=== PATIENT | female | born 1945 | race Caucasian/White ===

== ENCOUNTER 2016-06-18 13:26 | Emergency (ER) | payer MEDICARE, BC ==
[~2016-06-18] VITALS: Ht 165.1 cm; Wt 92.3 kg
[~2016-06-18 13:26] MED LIST: ADVAI250I PO; ALBU8I INH; ASCO500 PO; ASPI1TAB7 PO; BISA10R; CALTTAB PO; DUONI NEB; FENO134C PO; HYDR-3580 PO; LEVO50TA4 PO; LORA1TAB PO; LOSA50TA PO; MELA10CA PO; METO25 PO; OXYC10 PO; SENN8.6T15 PO; VITA100020 IM; VITA500015 PO
[2016-06-18 13:37] VITALS: BP 151/82; PULSE 54; RESP 18; TEMP 97.7; O2SAT 96
[2016-06-18] MEDS ORDERED: OMEP20TA PO (14:11)
[2016-06-18] MEDS ORDERED: VENTAER INH (14:11)
[2016-06-18] MEDS ORDERED: ADVA500A INH (14:11)
[2016-06-18] MEDS ORDERED: AMBI10TA PO (14:11)
[2016-06-18] MEDS ORDERED: IPRASOL INH (14:11)
[2016-06-18] MEDS ORDERED: CYAN1000P IM (14:11)
[2016-06-18] MEDS ORDERED: LOSA50TA PO (14:11)
[2016-06-18] MEDS ORDERED: LEVO50TA4 PO (14:11)
[2016-06-18] MEDS ORDERED: FLUC100T2 PO (14:11)
[2016-06-18] MEDS ORDERED: METO25TA3 PO (14:11)
[2016-06-18] MEDS ORDERED: HYDR-3366 PO (14:11)
[2016-06-18] MEDS ORDERED: DIAZ5 PO (14:11)
[2016-06-18] MEDS ORDERED: FERR325T72 PO (14:11)
[2016-06-18] MEDS ORDERED: HYDROmorphone HCL PF 1 MG/ML VIAL IM ONE (14:30)
[2016-06-18] MEDS ORDERED: ONDANSETRON ODT 4 MG TAB PO ONE (14:30)
--- NOTE | 2016-06-18 14:58 | PD ---
HPI Chief Complaint: Musculoskeletal Complaint Time Seen by Provider: 14:13 Travel History International Travel<30 days: No Contact w/Intl Traveler<30days: No Traveled to known affect area: No History of Present Illness HPI 70-year-old female complains of right hip pain. Patient states that she started having right hip pain about 2 weeks ago. Patient was seen by personal physician and pain management and had a shot to the right hip about 2 weeks ago without much success of controlling the pain. Patient was given prescription for hydrocodone for pain. Patient states that she has persistent pain despite taking the hydrocodone. Patient denies any injury to right hip. Patient states that pain localized to the posterior, lateral and anterior aspect of the right hip including right groin. Patient denies any fever chills. Patient denies any weakness or numbness of right lower extremity. Patient has history of hypertension, dyslipidemia, thyroid disease, arthritis, status post left hip placement. On a scale of 1-10 the pain is a 10. PFSH Past Medical History Hx Anticoagulant Therapy: Yes (81MG ASA) Arthritis: Yes Asthma: Yes Autoimmune Disease: No Anxiety: Yes Depression: Yes Heart Rhythm Problems: No Cancer: No Cardiac Catheterization: Yes (10/2013) Cardiovascular Problems: Yes (PERICARDITIS) High Cholesterol: Yes Chest Pain: Yes Congestive Heart Failure: No COPD: No Cerebrovascular Accident: No Diabetes: No Diminished Hearing: No Endocrine: No GERD: No Genitourinary: Yes (Self caths 3-4xday Neurugenic bladder) Headaches: Yes Hepatitis: No Hiatal Hernia: Yes (esophageal and morgani hernia) Hypertension: Yes Immune Disorder: No Implanted Vascular Access Dvce: Yes Kidney Stones: No Musculoskeletal: Yes (arthritis) Neurologic: No Psychiatric: Yes Reproductive: No Respiratory: Yes (ASTHMA) Immunizations Current: Yes Migraines: No Renal Failure: No Seizures: No Sleep Apnea: No Thyroid Disease: Yes Ulcer: No Tetanus Vaccination: Unknown Influenza Vaccination: Yes ?: Not Menopausal: Yes Past Surgical History Abdominal Surgery: Yes (HERNIA, INCARCERATED STOMACH, LIVER AND COLON ) AICD: No Appendectomy: Yes Arteriovenous Shunt: No Body Medical Devices: INTERSTEIM IN LEFT HIP THAT CONTROLS BLADDER Cardiac Surgery: No Ear Surgery: No Endocrine Surgery: No Eye Surgery: No Genitourinary Surgery: Yes (BLADDER stimulator in left hip 2009) Gynecologic Surgery: No Insulin Pump: No Joint Replacement: Yes (left total hip) Oral Surgery: No Pacemaker: No Thoracic Surgery: No Tonsillectomy: Yes Other Surgery: Yes ( varicose veins, VENOUS ABLATION L LEG) Social History Alcohol Use: No Tobacco Use: No Substance Use: No Allergies-Medications (Allergen,Severity, Reaction): Coded Allergies: Amitriptyline (Verified Allergy, Severe, headaches and blurred vision, 06/18) HMG-CoA Reductase Inhibitors (Unverified Allergy, Severe, 06/18/16) Welchol (Unverified Allergy, Severe, "ASTHMA", 06/18/16) Gabapentin (Verified Allergy, Intermediate, HIVES, 06/18/16) Zoloft (Verified Allergy, Intermediate, 06/18/16) RASH Cymbalta (Verified Allergy, Mild, Hives, 06/18/16) MRI PRECAUTION (Verified Adverse Reaction, Severe, 06/18/16) PATIENT HAS A [employer] BLADDER STIMULATOR IN HER LEFT HIP. 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 Uncoded Allergies: adhesive tapes (Adverse Reaction, Intermediate, Rash, 06/18/16) . Reported Meds & Prescriptions Reported Meds & Active Scripts Active Reported [place] (Hydrocodone-Acetaminophen) 10-325 Mg Tab 1 Tab PO Q4H PRN Duoneb (Ipratropium-Albuterol Neb) 0.5-2.5 Mg/3 Ml Neb 1 Nebule INH Q4HR NEB Fluconazole 100 Mg Tab 100 Mg PO DAILY Omeprazole 20 Mg Tab 20 Mg PO DAILY Metoprolol Tartrate 25 Mg Tab 25 Mg PO BID Ambien (Zolpidem Tartrate) 10 Mg Tab 10 Mg PO HS PRN Cyanocobalamin Inj (Cyanocobalamin) 1,000 Mcg/Ml Inj 1,000 Mcg IM ONCE Valium (Diazepam) 5 Mg Tab 5 Mg PO BID PRN Losartan (Losartan Potassium) 50 Mg Tab 50 Mg PO DAILY Ventolin Hfa 18 GM Inh (Albuterol Sulfate) 90 Mcg/Act Aer 2 Puff INH Q6H PRN Advair Diskus Inh (Fluticasone-Salmeterol Inh) 500-50 Mcg/Blist Aer 1 Puff INH BID Rinse mouth after use. Ferrous Gluconate 325 Mg Tab 325 Mg PO DAILY Levothyroxine (Levothyroxine Sodium) 50 Mcg Tab 50 Mcg PO DAILY Review of Systems General / Constitutional: No: Fever Eyes: No: Visual changes HENT: No: Headaches Cardiovascular: No: Chest Pain or Discomfort Respiratory: No: Shortness of Breath Gastrointestinal: No: Abdominal Pain Genitourinary: No: Dysuria Musculoskeletal: Positive: Pain Skin: No Rash Neurologic: No: Weakness Psychiatric: No: Depression Endocrine: No: Polydipsia Hematologic/Lymphatic: No: Easy Bruising Physical Exam Narrative GENERAL: Well-nourished, well-developed patient. SKIN: Focused skin assessment warm/dry. HEAD: Normocephalic. EYES: No scleral icterus. No injection or drainage. NECK: Supple, trachea midline. No JVD or lymphadenopathy. CARDIOVASCULAR: Regular rate and rhythm without murmurs, gallops, or rubs. RESPIRATORY: Breath sounds equal bilaterally. No accessory muscle use. GASTROINTESTINAL: Abdomen soft, non-tender, nondistended. MUSCULOSKELETAL: No cyanosis, or edema. BACK: Nontender without obvious deformity. No CVA tenderness. Patient has moderate tenderness to palpation right hip joint including posterior lateral and anterior aspect the right hip joint. Limited range of motion of the right hip joint secondary to pain. Sensorimotor function distally intact. Data Data Last Documented VS Vital Signs Date Time Temp Pulse Resp B/P Pulse Ox O2 Delivery O2 Flow Rate FiO2 06/18/16 13:37 97.7 54 18 151/82 96 Orders Hip, Uni(Ap&Lat) Wo Ap Pelvis (06/18/16 14:28) Hydromorphone Pf Inj (Dilaudid Pf Inj) (06/18/16 14:30) Ondansetron Odt (Zofran Odt) (06/18/16 14:30) MDM Medical Decision Making Medical Screen Exam Complete: Yes Emergency Medical Condition: Yes Interpretation(s) X-ray of the right hip show osteoarthritis. No acute fracture. Differential Diagnosis Differential diagnosis including bursitis, tendinitis, osteoarthritis, fracture , dislocation. Narrative Course 70-year-old female with right hip pain. Dilaudid 1 mg IM. Zofran 4 mg ODT. Diagnosis Primary Impression: Arthralgia of right hip Patient Instructions: General Instructions Additional Instructions: Continue with hydrocodone. Flexeril as directed. Follow-up with orthopedist as scheduled. Return if worse. Med/Other Pt SpecificInfo: Prescription(s) given Scripts Cyclobenzaprine (Flexeril)10 Mg Tab10 Mg PO TID #60 TAB Ref 0 Prov:Tray Garcia MD 06/18/16 Disposition: 01 DISCHARGE HOME Condition: Stable Tray Garcia MD Jun 18, 2016 14:58
--- NOTE | 2016-06-18 15:24 | RADHPO ---
EXAM DATE/TIME: 06/18/2016 14:55 [facility] COMPARISON: HIP RIGHT (AP & LAT), January 07, 2012, 16:20. INDICATIONS : Right hip area pain for 2 weeks MEDICAL HISTORY : None. SURGICAL HISTORY : Left hip ENCOUNTER: Initial ACUITY: 2 weeks PAIN SCORE: 10/10 LOCATION: Right hip FINDINGS: A two view examination of the right hip was performed. The primary and secondary trabecular pattern of the femoral neck is intact. The hip joint is of normal width without significant sclerosis or bon y hypertrophy. The acetabulum is grossly intact. CONCLUSION: 1. Mild osteoarthritis of the right hip. No acute findings. Brandt Lomeli MD on June 18, 2016 at 15:21 Board Certified Radiologist. This report was verified electronically.
[2016-06-18] MEDS ORDERED: CYCL1TAB29 PO (15:37)
== END 2016-06-18 15:46 | disposition home or self-care (01) ==
LOC: PHEFT 13:26
DX: M25.551 Pain in right hip (principal)
CPT/HCPCS: 73502; 96372; 99283; J1170

== ENCOUNTER → 2017-07-20 | Outpatient (CLI) | payer MEDICARE, BC ==
[~2017-07-20] MED LIST changes: +ADVA500A INH; -ADVAI250I PO; -ALBU8I INH; +AMBI10TA PO; -ASCO500 PO; -ASPI1TAB7 PO; -BISA10R; -CALTTAB PO; +CYAN1000P IM; +CYCL10TA PO; +DIAZ5 PO; -DUONI NEB; -FENO134C PO; +FERR325T72 PO; +FLUC100T2 PO; +HYDR-3366 PO; -HYDR-3580 PO; +IPRASOL INH; -LORA1TAB PO; -MELA10CA PO; -METO25 PO; +METO25TA3 PO; +OMEP20TA93 PO; -OXYC10 PO; -SENN8.6T15 PO; +VENTAER INH; -VITA100020 IM; -VITA500015 PO
--- NOTE | 2017-07-20 10:33 | RADRPT ---
EXAM DATE/TIME: 07/20/2017 00:00 [facility] COMPARISON: No previous studies available for comparison. INDICATIONS : Trouble swallowing and complains of food getting stuck since May. FLUORO TIME: 1.6 minutes IMAGE COUNT: 0 CONTRAST: Dose as prescribed by speech pathologist. MEDICAL HISTORY : Hypertension. Hypercholesterolemia. Gastroesophageal reflux disease. Thyroid disease. Asthma. SURGICAL HISTORY : Tonsillectomy. Fusion, cervical. Appendectomy. Hernia surgery. Left hip replacement. ENCOUNTER: Initial ACUITY: 2 months PAIN SCORE: 0/10 LOCATION: Esophagus. FINDINGS: A modified barium swallow was performed with speech pathology. Patient was given a variety of liquids to swallow. Minimal laryngeal penetration noted. For a full detailed report, see report by the speech pathologist. CONCLUSION: 1. Minimal laryngeal penetration without aspiration. Brandt Lomeli MD on July 20, 2017 at 10:30 Board Certified Radiologist. This report was verified electronically.
== END ==
LOC: HRAD 09:50
DX: R13.10 Dysphagia, unspecified (principal)
CPT/HCPCS: 74230; 92611; G8996; G8997; G8998